=== PATIENT | female | born 1980 | race Caucasian/White ===

== ENCOUNTER 2018-11-08 10:23 | Emergency (ER) | payer SELFPAY ==
[2018-11-08 10:34] VITALS: BP 160/109
[2018-11-08] MEDS ORDERED: NITROGLYCERIN SINGLE TAB 0.4 MG SL PRN (11:00)
[2018-11-08 11:19] LABS: BASOPHILS % (AUTO) 0 % (0-1); EOSINOPHILS # (AUTO) 0.06 x10^3/uL (0-0.4); EOSINOPHILS % (AUTO) 1 % (1-7); LYMPHOCYTES # (AUTO) 1.06 x10^3/uL (1-3.4); LYMPHOCYTES % (AUTO) 15 % (22-44); MD NO; MEAN CORPUSCULAR HEMOGLOBIN 29.9 pg (27.0-34.8); MEAN CORPUSCULAR HGB CONC 32.8 g/dL (32.4-35.8); MEAN CORPUSCULAR VOLUME 91.2 fL (80-100); MEAN PLATELET VOLUME 8.5 fL (7.4-10.4); MONOCYTES # (AUTO) 0.51 x10^3/uL (0.2-0.8); MONOCYTES % (AUTO) 7 % (2-9); NEUTROPHILS # (AUTO) 5.59 x10^3/uL (1.8-6.8); NEUTROPHILS % (AUTO) 77 % (42-75); PLATELET COUNT 318 x10^3/uL (130-400); RED CELL DISTRIBUTION WIDTH 13.3 % (9.6-15.2)
[2018-11-08 11:29] LABS: INTERNATIONAL NORMALIZED RATIO 1.01 (0.93-1.1); PROTHROMBIN TIME 10.7 Seconds (9.6-11.5)
[2018-11-08 11:35] LABS: ALBUMIN 2.8 g/dL (3.4-5.0); CALCIUM 8.1 mg/dL (8.5-10.1)
[2018-11-08 11:40] LABS: ALANINE AMINOTRANSFERASE 36 U/L (12-78); ALKALINE PHOSPHATASE 80 U/L (45-117); ANION GAP 6 mmol/L (5-15); BILIRUBIN,TOTAL 0.2 mg/dL (0.2-1.0); CHLORIDE 106 mmol/L (98-107); CREATININE 1.03 mg/dL (0.55-1.02); TROPONIN I 0.026 ng/mL (0.000-0.045)
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
[2018-11-08] MEDS ORDERED: NITROGLYCERIN SINGLE TAB 0.4 MG SL ONE (12:02)
--- NOTE | 2018-11-08 12:07 | NUR ---
LUNCH RN: PT REFUSING TO TAKE NITRO TABLET. PT FRUSTRATED WITH THIS RN AND MD.
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
== END 2018-11-08 12:28 | disposition left against medical advice (07) ==
LOC: ED 11:08
DX: I50.9 Heart failure, unspecified (principal); M79.7 Fibromyalgia; F17.200 Nicotine dependence, unspecified, uncomplicated
CPT/HCPCS: 36415; 71045; 80053; 83880; 84484; 85025; 85610; 85730; 93005; 99284

== ENCOUNTER 2020-11-24 15:29 | Emergency (ER) | payer MEDICAID ==
[~2020-11-24] VITALS: Ht 177.8 cm; Wt 85.0 kg
[2020-11-24 15:33] VITALS: BP 127/87
--- NOTE | 2020-11-24 15:55 | NUR ---
PT IN GOWN IN [facility]. AWAITING ERP. PT EDUCATED ON ER PROCESS AND VERBALIZES UNDERSTANDING. PT ATTACHED TO VS AND CARDIAC MONITORS AT THIS TIME AND HAS CALL LIGHT WITHIN REACH.
--- NOTE | 2020-11-24 16:01 | NUR ---
DEB RICHARDSON, AT BS FOR PT HISTORY AND ASSESSMENT AT THIS TIME.
--- NOTE | 2020-11-24 16:30 | NUR ---
VERBAL ORDERS RECEIVED FROM DEB WHATLEY, TO WITHOLD PAIN MEDICATIONS AT THIS TIME UNTIL FURTHER EVALUATION OF PT.
--- NOTE | 2020-11-24 16:32 | NUR ---
PT UNCOOPATIVE WITH INFO FOR PHYSICAL ASSESSMENT AT THIS TIME. PT ONLY SHOUTING "MY FUCKING CHEST HURTS, AND I WANT SOCKS AND A PILLOW". PT ADMITS TO RECENT METHAMPHETAMINE USE.
--- NOTE | 2020-11-24 16:33 | NUR ---
LAB AT BS AT THIS TIME.
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
--- NOTE | 2020-11-24 17:19 | NUR ---
PT CONTINUES REFUSING REPEAT VITAL SIGNS AT THIS TIME.
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
== END 2020-11-24 17:38 | disposition home or self-care (01) ==
LOC: ED 16:00
DX: R07.9 Chest pain, unspecified (principal); F15.10 Other stimulant abuse, uncomplicated; R00.0 Tachycardia, unspecified; R10.30 Lower abdominal pain, unspecified; I50.9 Heart failure, unspecified; M79.7 Fibromyalgia; F17.200 Nicotine dependence, unspecified, uncomplicated
CPT/HCPCS: 71045; 93005; 99283